=== PATIENT | male | born 1955 | race Asian ===

== ENCOUNTER 2017-11-14 16:52 | Emergency (ER) | payer BC ==
[2017-11-14 17:03] VITALS: BP 151/90; PULSE 100; TEMP 99.1; BMI 26.4
[2017-11-14] MEDS ORDERED: KETOROLAC TROMETHAMINE 60 MG/2 ML VIAL IM ONE (17:58)
[2017-11-14] MEDS ORDERED: KETOROLAC TROMETHAMINE 60 MG/2 ML VIAL ONE (18:02)
--- NOTE | 2017-11-14 18:02 | PDOC ---
History of Present Illness - General Chief Complaint: Back Pain Stated Complaint: BACK PAIN Time Seen by Provider: 11/14/17 17:46 History Source: Patient, Family Exam Limitations: No Limitations (mid back pain X 2 days after heavy lifting) Past History - Travel Traveled outside of the country in the last 30 days: No Close contact w/someone who was outside of country & ill: No - Past Medical History Allergies/Adverse Reactions: Allergies Allergy/AdvReac Type Severity Reaction Status Date / Time No Known Allergies Allergy Verified 11/14/17 17:03 Home Medications: Ambulatory Orders Losartan Potassium 100 mg PO ASDIR 11/14/17 Metformin HCl [Metformin HCl ER] 1,000 mg PO ASDIR 11/14/17 COPD: No Diabetes: Yes Hypercholesterolemia: Yes - Suicide/Smoking/Psychosocial Hx Smoking History: Never smoked Review of Systems - Review of Systems Is the patient limited Danish proficient: No Constitutional: No: Chills, Fever Respiratory: No: Shortness of Breath Cardiac (ROS): No: Chest Pain, Irregular Heart Rate Musculoskeletal: Yes: Back Pain, Muscle Pain. No: Joint Swelling, Muscle Weakness, Neck Pain Neurological: No: Headache, Numbness, Paresthesia, Tingling, Tremors, Weakness, Dizziness *Physical Exam - Vital Signs Last Vital Signs Temp Pulse Resp BP Pulse Ox 99.1 F 100 H 20 151/90 97 11/14/17 16:58 11/14/17 16:58 11/14/17 16:58 11/14/17 16:58 11/14/17 16:58 - Physical Exam General Appearance: Yes: Nourished Respiratory/Chest: positive: Lungs Clear, Normal Breath Sounds Cardiovascular: positive: Regular Rhythm, Regular Rate, S1, S2 Gastrointestinal/Abdominal: positive: Soft Musculoskeletal: positive: Muscle Spasm (mid back, + paraspinal tenderness in thoracic region) Extremity: positive: Normal Capillary Refill, Normal Inspection Integumentary: positive: Normal Color Neurologic: 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 HE was seen by his PCP yesterday, prescribed toradol/flexeril for pain, pt states it is not working. No trauma Exam consistent with muscle tenderness in mid back stable gait, no weakness toradol for pain control warm compress to area *DC/Admit/Observation/Transfer Diagnosis at time of Disposition: Back pain Qualifiers: Back pain location: thoracic back pain Chronicity: acute Back pain laterality: unspecified Qualified Code(s): M54.6 - Pain in thoracic spine - Discharge Dispostion Disposition: HOME Condition at time of disposition: Stable Decision to Admit order: No - Referrals - Patient Instructions Printed Discharge Instructions: Thoracic Back Pain Additional Instructions: Take medication as prescribed by Primary care doctor please keep knee bent while heavy lifting return to the Emergency Department if worsening symptoms occurs - Post Discharge Activity
== END 2017-11-14 18:38 | disposition home or self-care (01) ==
LOC: JERFT 16:52
PROC: 3E0233Z Introduction of Anti-inflammatory into Muscle, Percutaneous Approach (ICD-10-PCS; principal; 2017-11-14)
DX: M54.6 Pain in thoracic spine (principal); X50.0XXA Overexertion from strenuous movement or load, initial encounter; Y93.E9 Activity, other interior property and clothing maintenance; Y92.018 Other place in single-family (private) house as the place of occurrence of the external cause; Y99.8 Other external cause status
CPT/HCPCS: 99281-25

== ENCOUNTER 2020-01-06 10:19 | Emergency (ER) | payer BC ==
--- NOTE | 2020-01-06 10:34 | TELE ---
HPI Do you have fever,cough or shortness of breath?: No - General Reason For Visit: COLD SYMPTOMS/FEVER History Source: Patient Past History - Medical History Allergies/Adverse Reactions: Allergies Allergy/AdvReac Type Severity Reaction Status Date / Time No Known Allergies Allergy Verified 11/14/17 17:03 Home Medications: Ambulatory Orders Losartan Potassium 100 mg PO ASDIR 11/14/17 metFORMIN HCL [Metformin HCl ER] 1,000 mg PO ASDIR 11/14/17 COPD: No Diabetes: Yes Hypercholesterolemia: Yes - Psycho-Social/Smoking History Smoking History: Never smoked Review of Systems - Review of Systems Constitutional: No: Chills, Fever Respiratory: No: Cough, Shortness of Breath Cardiac (ROS): No: Chest Pain - Medical Decision Making 01/06/20 10:33 Pt calling for covid testing No sxs at this time Order placed and directions sent over to pt via virtual UC Discharge Diagnosis at time of Disposition: Encounter by telehealth for suspected COVID-19 - Referrals Follow-up Referral(s): Cheyanne Estrada MD [Primary Care Provider] - - Patient Instructions - Discharge Disposition: HOME
== END 2020-01-11 13:24 | disposition home or self-care (01) ==
LOC: JVIRT 10:19
DX: R50.9 Fever, unspecified (principal); Z11.59 Encounter for screening for other viral diseases
CPT/HCPCS: Q3014-GT

== ENCOUNTER 2020-01-12 12:23 | Emergency (ER) | payer BC ==
[2020-01-12 12:32] VITALS: BP 94/61; PULSE 85; TEMP 98; BMI 23.4
--- NOTE | 2020-01-12 13:31 | PDOC ---
History of Present Illness - General Chief Complaint: Abnormal Lab Results (Outside) Stated Complaint: SENT BY DOC Time Seen by Provider: 01/12/20 13:28 History Source: Patient Exam Limitations: No Limitations - History of Present Illness Initial Comments: 01/12/20 13:47 64yM w PMHx DM HTN HLD presenting w 3wk dysuria, chills treated with cefoxitin and cipro, now has persistent subjective fevers/chills, intermittent cough, generalized weakness. PCP also concerned of uptrending AST 130 ALT 118 and possible resistant UTI. Denies fever, n/v, chest/ABD pain, urinary/bowel mvmt changes, SOB. Past History - Medical History Allergies/Adverse Reactions: Allergies Allergy/AdvReac Type Severity Reaction Status Date / Time No Known Allergies Allergy Verified 01/12/20 12:27 Home Medications: Ambulatory Orders metFORMIN HCL [Metformin HCl ER] 1,000 mg PO ASDIR 11/14/17 Atorvastatin Calcium 80 mg PO HS 01/12/20 Azilsartan Medoxomil [Edarbi] 80 mg PO ASDIR 01/12/20 Carvedilol [Coreg -] 6.25 mg PO BID 01/12/20 Ticagrelor [Brilinta] 90 mg PO DAILY 01/12/20 COPD: No Diabetes: Yes Hypercholesterolemia: Yes - Psycho-Social/Smoking History Smoking History: Current every day smoker Information on smoking cessation initiated: Yes - Substance Abuse Hx (Audit-C & DAST Scrn) How often the patient has a drink containing alcohol: Never Score: In Men: 4 or > Positive; In Women: 3 or > Positive: 0 Screen Result (Pos requires Nsg. Audit-10AR): Negative In the last yr the pt used illegal drug/Rx for NonMed reason: No Score: Yes response is considered Positive: 0 Screen Result (Positive result requires Nsg. DAST-10): Negative Review of Systems - Review of Systems Constitutional: Yes: Chills, Fever HEENTM: No: Eye Pain, Nose Congestion Respiratory: No: Cough, Shortness of Breath Cardiac (ROS): No: Chest Pain, Palpitations ABD/GI: No: Constipated, Diarrhea, Nausea, Vomiting : No: Burning, Dysuria Musculoskeletal: No: Back Pain, Joint Pain Integumentary: No: Bruising, Flushing Neurological: No: Headache, Seizure Psychiatric: No: Anxiety, Depression Endocrine: No: Intolerance to Cold, Intolerance to Heat Hematologic/Lymphatic: No: Anemia, Blood Clots *Physical Exam - Vital Signs Last Vital Signs Temp Pulse Resp BP Pulse Ox 98 F 85 18 94/61 99 01/12/20 12:29 01/12/20 12:29 01/12/20 12:29 01/12/20 12:29 01/12/20 12:29 - Physical Exam General Appearance: Yes: Nourished, Appropriately Dressed. No: Apparent Distress HEENT: positive: EOMI, VIVIANA, Normal Voice, Hearing Grossly Normal. negative: Scleral Icterus (R), Scleral Icterus (L) Respiratory/Chest: positive: Lungs Clear, Normal Breath Sounds. negative: Chest Tender, Respiratory Distress Cardiovascular: positive: Regular Rhythm, Regular Rate, S1, S2. negative: Edema, Murmur Gastrointestinal/Abdominal: positive: Normal Bowel Sounds, Flat, Soft. negative: Tender, Organomegaly Integumentary: positive: Normal Color, Warm Neurologic: positive: Fully Oriented, Alert, Normal Mood/Affect, Normal Response, Responsive ED Treatment Course - LABORATORY CBC & Chemistry Diagram: 01/12/20 14:10 01/12/20 14:10 Medical Decision Making - Medical Decision Making 01/12/20 15:09 64yM w PMHx DM HTN HLD presenting w 3wk dysuria, chills treated with cefoxitin and cipro, now has persistent subjective fevers/chills, intermittent cough, generalized weakness. No sign of UTI or PNA (clear lungs XR). Transaminases downtrending AST 48 ALT 98. May be covid Updated PCP w workup, will f/u outpatient DC home w PCP f/u, quarantine instructions - pending covid Discharge - Discharge Information Problems reviewed: Yes Clinical Impression/Diagnosis: Elevated transaminase level Fever Qualifiers: Fever type: unspecified Qualified Code(s): R50.9 - Fever, unspecified Condition: Good Disposition: HOME - Follow up/Referral Referrals: Cheyanne Estrada MD [Primary Care Provider] - Mode Gaona DO [Staff Physician] - - Patient Discharge Instructions Patient Printed Discharge Instructions: [facility]Coronavirus Instructions, [facility]- [facility] COVID-19 Isolation Protocol Additional Instructions: You do not have any signs of urine or lung infection. Stay quarantined for suspected coronavirus infection. You will be contacted with your results in 1-3 days Drink lots of water Follow up with your primary care doctor and referred GI Dr Gaona for your elevated liver enzymes. - Post Discharge Activity
[2020-01-12 14:33] LABS: BASO % 0.4 % (0-2.0); EOS % 2.3 % (0-4.5); HEMATOCRIT 44.9 % (35.4-49); LYMPH % 52.5 % (8-40); MCH 31.6 pg (25.7-33.7); MCHC 33.3 g/dl (32.0-35.9); MEAN CELL VOLUME 94.9 fl (80-96); MEAN PLT VOLUME 8.5 fl (7.5-11.1); MONO % 16.9 % (3.8-10.2); NEUT % 27.9 % (42.8-82.8); PLATELET COUNT 249 K/MM3 (134-434); RBC 4.74 M/mm3 (4.00-5.60); RDW 13.5 % (11.9-15.9); WHITE BLOOD COUNT 10.5 K/mm3 (4.0-10.0)
[2020-01-12 15:04] LABS: PH,URINE 5.5 (5.0-8.0); URINE APPEARANCE CLEAR; URINE BILIRUBIN NEGATIVE (NEGATIVE); URINE COLOR YELLOW; URINE GLUCOSE (UA) 3+ (NEGATIVE); URINE KETONE NEGATIVE (NEGATIVE); URINE LEUK ESTERASE NEGATIVE (NEGATIVE); URINE NITRITE NEGATIVE (NEGATIVE); URINE PROTEIN NEGATIVE (NEGATIVE); URINE UROBILINOGEN 0.2 mg/dL (0.2-1.0)
[2020-01-12 15:08] LABS: ALBUMIN 3.4 g/dl (3.4-5.0); BILIRUBIN,TOTAL 0.9 mg/dL (0.2-1); BLOOD UREA NITROGEN 17.1 mg/dL (7-18); CALCIUM 9.4 mg/dL (8.5-10.1); CREATININE 1.2 mg/dL (0.55-1.3); POTASSIUM 5.3 mmol/L (3.5-5.1); TOT PROT 7.6 g/dl (6.4-8.2)
--- NOTE | 2020-01-12 18:12 | PDOC ---
Documentation entered by Migel Howard SCRIBE, acting as scribe for Soniya Romero MD. Soniya Romero MD: This documentation has been prepared by the abdiase, Migel Howard SCRIBE, under my direction and personally reviewed by me in its entirety. I confirm that the documentation accurately reflects all work, treatment, procedures, and medical decision making performed by me. Attending Attestation - Resident Resident Name: Galo Chu - ED Attending Attestation I have performed the following: I have examined & evaluated the patient, The case was reviewed & discussed with the resident, I agree w/resident's findings & plan, Exceptions are as noted - HPI HPI: 01/12/20 16:49 The patient is a 64 year old male with a significant past medical history of DM, HTN, and HLD who presents to the ED, sent from his PCP, with intermittent subjective fever, chills, malaise, and poor appetite that began three weeks ago. He previously presented to his PCP with dysuria at that time and was diagnosed with a UTI and treated with cefoxitin and cipro. He completed these antibiotics a few weeks ago. He followed up at his PCP today after he had labs drawn 3 days ago which revealed increased liver enzymes. When he c/o continued generalized weakness, fatigue, and intermittent fevers/chills, his PMD recommended he come to the ED for further evaluation. Pt reports a chronic cough for years 2/2 smoking, no change in the cough recently. Denies COVID exposure. The patient denies chest pain, shortness of breath, dizziness, focal weakness/numbness, headaches, blurry vision, rash, stiff neck, abd pain, nausea, diarrhea, vomiting, rash, LE edema. Denies any other symptoms. Allergies: NKDA Social Hx: The patient reports he smokes cigarettes daily. PCP: Cheyanne Estrada MD - Physicial Exam PE: 01/12/20 13:56 GENERAL: Awake, alert, and fully oriented, in no acute distress, non toxic and well appearing EYES: PERRLA, EOMI, sclera anicteric, conjunctiva clear ENT: Nares patent, oropharynx clear without exudates. Moist mucosa NECK: Normal ROM, supple, no lymphadenopathy, JVD, or masses LUNGS: Breath sounds equal, clear to auscultation bilaterally. No wheezes, and no crackles HEART: Regular rate and rhythm, normal S1 and S2, no murmurs, rubs or gallops ABDOMEN: Soft, nontender, normoactive bowel sounds. No guarding, no rebound. No masses EXTREMITIES: Normal range of motion, no edema. No clubbing or cyanosis. No cords, erythema, or tenderness BACK: No midline spinal tenderness in cervical/thoracic/lumbar region NEUROLOGICAL: Normal speech, cranial nerves intact, negative pronator drift, 5/5 strength in all 4 extremities, normal sensation to light touch in all 4 extremities, normal cerebellar exam, normal gait SKIN: Warm, Dry, normal turgor, no rashes or lesions noted - Medical Decision Making 01/12/20 18:04 64-year-old male presents emergency department with generalized malaise, fevers, chills, and anorexia. Vitals initially with low blood pressure 90s over 60s, however patient states he took all of his blood pressure medications immediately prior to arriving in the emergency department. On recheck by me, his blood pressure is 108/78. Exam within normal limits, patient is well-appearing. His blood work was remarkable for a very mild leukocytosis of 10 which is down from 12 compared to outpatient labs that patient has brought with him. Patient also has elevated LFTs here in the emergency department but they are also decreased from the 100s on his outpatient lab reports. LFTs could be 2/2 viral syndrome, but they are downtrending which is reassuring. His K is 5.3, also was 5.3 on outpt labs. His urinalysis is negative for infection. His chest x-ray is clear. We also obtained urine cultures, blood cultures under COVID swab which are pending. Overall his bloodwork is not revealing of any abnormality that explains his sxs. Pt could possibly have COVID or another viral syndrome, although he denies rece nt known exposures. Case and all results have been discussed with the patient's primary care physician Dr. Estrada. Since the patient feels well and his work-up is not revealing, the plan will be to discharge the patient at this time and the patient will be called if his COVID swab or his cultures are positive. Dr. Estrada would like to see the patient within 1 to 2 weeks. Return precautions have been discussed with the patient and his . They expressed understanding. I discussed the physical exam findings, ancillary test results and final diagnoses with the patient. I answered all of the patient's questions. The patient was satisfied with the care received and felt comfortable with the discharge plan and treatment plan. The patient will call their primary care physician within 24 hours to arrange follow-up and will return to the Emergency Department with any new, persistent or worsening symptoms. Discharge - Discharge Information Problems reviewed: Yes Clinical Impression/Diagnosis: Elevated transaminase level, Malaise, Anorexia Fever Qualifiers: Fever type: unspecified Qualified Code(s): R50.9 - Fever, unspecified Condition: Good Disposition: HOME - Follow up/Referral Referrals: Mode Gaona DO [Staff Physician] - Cheyanne Estrada MD [Primary Care Provider] - - Patient Discharge Instructions Patient Printed Discharge Instructions: [facility]Coronavirus Instructions, [facility]- [facility] COVID-19 Isolation Protocol Additional Instructions: You do not have any signs of urine or lung infection. Stay quarantined for suspected coronavirus infection. You will be contacted with your results in 1-3 days Drink lots of water Follow up with your primary care doctor and referred GI Dr Gaona for your elevated liver enzymes. - Post Discharge Activity
== END 2020-01-12 16:23 | disposition home or self-care (01) ==
LOC: JER 12:23
DX: R74.0 Nonspecific elevation of levels of transaminase and lactic acid dehydrogenase [LDH] (principal); R53.81 Other malaise; R50.9 Fever, unspecified
CPT/HCPCS: 36415; 71045-TC-FY; 80053; 81003; 85025; 87040; 87086; 99284-25; U0003